=== PATIENT | male | born 1950 | race Caucasian/White ===

== ENCOUNTER 2022-06-17 18:12 | Emergency (ER) | payer MEDICARE ==
[~2022-06-17] VITALS: Ht 175.3 cm; Wt 83.9 kg
[2022-06-17] MEDS ORDERED: AMLODIPINE BESYL5 MG PO (18:22)
[2022-06-17] MEDS ORDERED: ATORVASTATIN CA20 MG PO (18:22)
[2022-06-17] MEDS ORDERED: ATOR10 PO (18:22)
[2022-06-17] MEDS ORDERED: TADALAFIL5 M1 PO (18:22)
[2022-06-17] MEDS ORDERED: LISI20 PO (18:23)
[2022-06-17 19:27] LABS: BASOPHILS ABSOLUTE AUTO 0.05 K/mm3 (0.00-0.23); BASOPHILS PERCENT AUTO 0 % (0-2); EOSINOPHILS ABSOLUTE AUTO 0.03 K/mm3 (0.00-0.68); EOSINOPHILS PERCENT AUTO 0 % (0-6); Hematocrit 46.1 % (37.0-53.0); Hemoglobin 15.3 g/dL (13.5-17.5); IMMATURE GRAN ABSOLUTE AUTO 0.05 K/mm3 (0.00-0.10); IMMATURE GRAN PERCENT AUTO 0 % (0-1); LYMPHOCYTES ABSOLUTE AUTO 0.91 K/mm3 (0.84-5.20); LYMPHOCYTES PERCENT AUTO 6 % (21-46); MONOCYTES ABSOLUTE AUTO 1.18 K/mm3 (0.16-1.47); MONOCYTES PERCENT AUTO 7 % (4-13); Mean Corpuscular HGB 30.4 pg (26.0-34.0); Mean Corpuscular HGB Conc 33.2 g/dL (31.5-36.5); Mean Corpuscular Volume 92 fL (80-100); NEUTROPHILS ABSOLUTE AUTO 13.88 K/mm3 (1.96-9.15); NEUTROPHILS PERCENT AUTO 86 % (41-73); Platelet Count 229 K/mm3 (150-400); RDW Coefficient Variation 12.7 % (11.7-14.2); RDW Standard Deviation 42.5 fL (35.1-46.3); Red Blood Cell Count 5.04 M/mm3 (4.30-5.90)
[2022-06-17 19:48] LABS: Albumin, Blood 3.8 g/dL (3.4-5.0); Albumin/Globulin Ratio 0.9 (0.8-1.8); Bilirubin, Total 0.8 mg/dL (0.1-1.0); Bun/Creatinine Ratio 17.6 (12.0-20.0); Calcium, Blood 9.2 mg/dL (8.5-10.1); Creatinine, Blood 0.97 mg/dL (0.60-1.20); Globulin, Blood 4.2 g/dL (2.2-4.0); Potassium, Blood 3.6 mmol/L (3.5-5.5)
[2022-06-17 22:18] LABS: Magnesium, Blood 2.4 mg/dL (1.6-2.4)
[2022-06-17] MEDS ORDERED: Veetids 500500 MG PO (22:57)
== END 2022-06-17 23:10 | disposition home or self-care (01) ==
LOC: ER 18:12
PROVIDERS: Student in an Organized Health Care Education/Training Program
DX: R55 Syncope and collapse (principal); K04.7 Periapical abscess without sinus; R60.0 Localized edema; E86.0 Dehydration; I10 Essential (primary) hypertension; E78.5 Hyperlipidemia, unspecified; Z79.899 Other long term (current) drug therapy
CPT/HCPCS: 36415; 70450; 71045; 80053; 83605; 83735; 84145; 84484; 85025; A9270; J7030

== ENCOUNTER → 2024-02-19 | Outpatient (CLI) | payer MEDICARE ==
[~2024-02-19] MED LIST: AMLODIPINE BESYL5 MG PO; ATOR10 PO; ATORVASTATIN CA20 MG PO; LISI20 PO; TADALAFIL5 M1 PO; Veetids 500500 MG PO
[2024-02-19 17:35] LABS: Free Thyroxine 0.89 ng/dL (0.70-1.60); Thyroid Stimulating Hormone 3.01 uIU/mL (0.360-4.800)
== END ==
LOC: LAB SHORT 16:08 → LAB 16:08
PROVIDERS: Nurse Practitioner Family
DX: E03.9 Hypothyroidism, unspecified (principal); R73.03 Prediabetes
CPT/HCPCS: 83036; 84439; 84443

== ENCOUNTER 2024-09-28 11:10 | Day surgery (SDC) | payer MEDICARE ==
[~2024-09-28] VITALS: Ht 175.3 cm; Wt 84.0 kg
[~2024-09-28 11:10] MED LIST changes: +Lactated Ringer's 1,000 ML IV ONE; +propofoL 50 ML IV ONE
[2024-09-28] MEDS ORDERED: LEVSOD112 (11:42)
[2024-09-28 14:10] VITALS: BP 114/76
== END 2024-09-28 14:00 | disposition home or self-care (01) ==
LOC: ORSCSDS 11:10
PROVIDERS: Surgery
PROC: 0DBK8ZX Excision of Ascending Colon, Via Natural or Artificial Opening Endoscopic, Diagnostic (ICD-10-PCS; principal; 2024-09-28 13:00)
DX: Z12.11 Encounter for screening for malignant neoplasm of colon (principal); Z86.0100 Personal history of colon polyps, unspecified; D12.2 Benign neoplasm of ascending colon; K64.8 Other hemorrhoids; K57.30 Diverticulosis of large intestine without perforation or abscess without bleeding; Z79.899 Other long term (current) drug therapy
CPT/HCPCS: 82947; 88305; J2704; J7120

== ENCOUNTER → 2025-02-04 | Outpatient (CLI) | payer MEDICARE ==
[~2025-02-04] MED LIST changes: +LEVSOD112; -Lactated Ringer's 1,000 ML IV ONE; -propofoL 50 ML IV ONE
[2025-02-04 17:02] LABS: Alanine Aminotransfer (ALT/SGP 27 U/L (12-78); Albumin, Blood 3.4 g/dL (3.4-5.0); Albumin/Globulin Ratio 1.1 (0.8-1.8); Anion Gap 5 mmol/L (3-11); Aspartate Aminotrans (AST/SGOT 21 U/L (12-37); Bilirubin, Total 0.5 mg/dL (0.1-1.0); Blood Urea Nitrogen 20 mg/dL (8-24); CO2, Blood 26 mmol/L (21-32); Calcium, Blood 8.7 mg/dL (8.5-10.1); Chloride, Blood 112 mmol/L (98-108); Creatinine, Blood 0.90 mg/dL (0.60-1.20); Globulin, Blood 3.2 g/dL (2.2-4.0); Glucose, Blood 113 mg/dL (70-99); Potassium, Blood 4.0 mmol/L (3.5-5.5); Prostate Specific Antigen 0.681 ng/mL (0.000-4.000); Sodium, Blood 139 mmol/L (136-145); Thyroid Stimulating Hormone 1.420 uIU/mL (0.360-4.800); Total Protein, Blood 6.6 g/dL (6.4-8.2)
== END ==
LOC: LAB SHORT 16:18 → LAB 16:18
PROVIDERS: Nurse Practitioner Family
DX: Z12.5 Encounter for screening for malignant neoplasm of prostate (principal); I10 Essential (primary) hypertension; E03.9 Hypothyroidism, unspecified
CPT/HCPCS: 80053; 84439; 84443; G0103